=== PATIENT | female | born 1960 | race Caucasian/White ===

== ENCOUNTER → 2017-04-08 | Outpatient (CLI) | payer MEDICARE ==
--- NOTE | 2017-04-08 15:15 | US ---
EXAMINATION TYPE: US venous doppler duplex UE LT DATE OF EXAM: 04/08/2017 COMPARISON: NONE CLINICAL HISTORY: Left Arm Stenosis/I70.8 ATHEROSCLEROSIS OF ARTERIES. DX subclavia artery stenosis, Decrease pulses in left arm. No swelling or pain. No redness. SIDE PERFORMED: Left Grayscale, color doppler, spectral doppler imaging performed of the deep veins of the upper extremity . There is normal flow, compressability and vascular waveforms. IMPRESSION: Left Arm: Appears negative for DVT
== END | disposition home or self-care (01) ==
LOC: RADUSWWP 13:30
PROVIDERS: ATTEND Internal Medicine
DX: I70.8 Atherosclerosis of other arteries (principal)

== ENCOUNTER → 2017-04-09 | Outpatient (CLI) | payer MEDICARE ==
--- NOTE | 2017-04-10 17:28 | US ---
EXAMINATION TYPE: US renal artery duplex complete DATE OF EXAM: 04/09/2017 COMPARISON: NONE CLINICAL HISTORY: I70.1 renal artery stenosis. CKD, HTN for 10 years MEASUREMENTS: RENAL SIZE: Rt Kidney: 10.2 x 4.1 x 4.3cm Lt Kidney: 10.2 x 4.5 x 4.1cm RESISTANCE INDEX Right: 0.59 Left: 0.55 RA/AO RATIO (< 3.5 ) Right: 1.7 Left: 1.8 RA VELOCITY ( < 180 cm/s) Right: 169.0cm/s Left: 176.7cm/s Technical limitations due to patient's body habitus and interfering bowel content. Calcifications n oted throughout aorta. Complex cystic area upper pole cortex right kidney = 2.5 x 2.0 x 2.6cm. Diffic ult to visualize left renal artery, proximal measuring upper limits of normal. No evidence of renal a rtery stenosis as visualized. Good upstroke at segmentals at hilum. Low resistive waveforms noted thr oughout IMPRESSION: 1. No definite renal artery stenosis 2. Complex cystic area mid to upper pole right kidney. Recommend follow-up ultrasound in 3-6 months t o confirm stability.
== END | disposition home or self-care (01) ==
LOC: RADUSMAIN 08:11
PROVIDERS: ATTEND Internal Medicine
DX: N28.1 Cyst of kidney, acquired (principal); I70.1 Atherosclerosis of renal artery; N18.3 Chronic kidney disease, stage 3 (moderate)
CPT/HCPCS: 93975

== ENCOUNTER → 2017-12-25 | Outpatient (CLI) | payer MEDICARE ==
[2017-12-25 10:15] LABS: Basophils # (A) 0.1 k/uL (0-0.2); Basophils % (A) 1 %; Eosinophils # (A) 0.7 k/uL (0-0.7); Eosinophils % (A) 9 %; HCT 44.7 % (34.0-46.0); HGB 14.6 gm/dL (11.4-16.0); Lymphocytes # (A) 2.8 k/uL (1.0-4.8); Lymphocytes % (A) 34 %; MCH 30.4 pg (25.0-35.0); MCHC 32.6 g/dL (31.0-37.0); MCV 93.4 fL (80.0-100.0); Mean Platelet Volume 7.7; Monocytes # (A) 0.3 k/uL (0-1.0); Monocytes % (A) 4 %; Neutrophils # (A) 4.1 k/uL (1.3-7.7); Neutrophils % (A) 51 %; Platelet Count 318 k/uL (150-450); RBC 4.78 m/uL (3.80-5.40); RDW 13.8 % (11.5-15.5); WBC 8.1 k/uL (3.8-10.6)
[2017-12-25 10:31] LABS: ALT 26 U/L (9-52); AST 21 U/L (14-36); Albumin 3.9 g/dL (3.5-5.0); Alkaline Phosphatase 94 U/L (38-126); Anion Gap 8 mmol/L; Blood Urea Nitrogen 11 mg/dL (7-17); Calcium 9.6 mg/dL (8.4-10.2); Carbon Dioxide 24 mmol/L (22-30); Chloride 110 mmol/L (98-107); Cholesterol 186 mg/dL (<200); Creatine Kinase 57 U/L (30-135); Glucose 86 mg/dL (74-99); HDL Cholesterol 42 mg/dL (40-60); LDL Cholesterol,Calculated 117 mg/dL (0-99); Potassium 4.9 mmol/L (3.5-5.1); Sodium 142 mmol/L (137-145); Total Bilirubin 0.5 mg/dL (0.2-1.3); Total Protein 6.7 g/dL (6.3-8.2); Triglycerides 136 mg/dL (<150); Uric Acid 5.8 mg/dL (3.7-7.4)
[2017-12-25 11:16] LABS: C Reactive Protein <5.0 mg/L (<10.0)
[2017-12-25 11:32] LABS: Erythrocyte Sedimentation Rate 20 mm/hr (0-20)
== END | disposition home or self-care (01) ==
LOC: LABWHC1 08:45
PROVIDERS: ATTEND Internal Medicine
DX: N18.3 Chronic kidney disease, stage 3 (moderate) (principal); D63.1 Anemia in chronic kidney disease; E78.5 Hyperlipidemia, unspecified; E03.9 Hypothyroidism, unspecified; E66.9 Obesity, unspecified; E55.9 Vitamin D deficiency, unspecified
CPT/HCPCS: 36415; 80053; 80061; 82306; 82550; 84443; 84550; 85025; 85652; 86140

== ENCOUNTER → 2018-04-10 | Outpatient (CLI) | payer MEDICARE ==
[2018-04-10 16:11] LABS: LDL Cholesterol,Calculated 70.6 mg/dL (0.0-131.0); VLDL Calculation 18.4 mg/dL (5.00-40.00)
== END | disposition home or self-care (01) ==
LOC: LABWHC1 08:12
PROVIDERS: ATTEND Internal Medicine
DX: E78.5 Hyperlipidemia, unspecified (principal); N18.3 Chronic kidney disease, stage 3 (moderate); I21.09 ST elevation (STEMI) myocardial infarction involving other coronary artery of anterior wall; T50.905A Adverse effect of unspecified drugs, medicaments and biological substances, initial encounter
CPT/HCPCS: 36415; 80061; 82550; 84450; 84460

== ENCOUNTER → 2023-08-15 | Outpatient (CLI) | payer MEDICARE, OTHER ==
--- NOTE | 2023-08-17 17:06 | US ---
EXAMINATION TYPE: US venous doppler duplex LE LT DATE OF EXAM: 08/15/2023 1:09 PM COMPARISON: NONE CLINICAL INDICATION: Female, 63 years old with history of M79.662 PAIN IN LEFT LOWER LEG M79.89; Left broken knee x 8 weeks ago. Pain. SIDE PERFORMED: Left TECHNIQUE: The lower extremity deep venous system is examined utilizing real time linear array sonog eddie with graded compression, doppler sonography and color-flow sonography. VESSELS IMAGED: Common Femoral Vein Deep Femoral Vein Greater Saphenous Vein * Femoral Vein Popliteal Vein Small Saphenous Vein * Proximal Calf Veins (* superficial vessels) Grayscale, color doppler, spectral doppler imaging performed of the deep veins of the left lower extr emity. There is normal flow, compressibility, vascular waveforms. Left Leg: Negative for DVT IMPRESSION: No deep venous thrombosis of the left lower extremity.
== END | disposition home or self-care (01) ==
LOC: RADUSWWP 12:41
PROVIDERS: ATTEND Internal Medicine
DX: M79.662 Pain in left lower leg (principal); M79.89 Other specified soft tissue disorders